=== PATIENT | male | born 1955 | race Two or more races ===

== ENCOUNTER 2016-09-05 14:29 | Emergency (ER) | payer OTHER ==
[~2016-09-05] VITALS: Ht 182.9 cm; Wt 95.3 kg
[2016-09-05 14:36] VITALS: BP 145/78
== END 2016-09-05 14:52 ==
LOC: ER 14:31
DX: S30.851A Superficial foreign body of abdominal wall, initial encounter (principal); T75.4XXA Electrocution, initial encounter; Y93.89 Activity, other specified; Y92.89 Other specified places as the place of occurrence of the external cause; Y99.8 Other external cause status; R45.1 Restlessness and agitation
CPT/HCPCS: 93005; 99284; A4606 ×2; A6402; Z7610 ×2